=== PATIENT | female | born 1955 | race Caucasian/White ===

== ENCOUNTER → 2016-09-08 | Outpatient (CLI) | payer OTHER ==
[~2016-09-08] MED LIST: BAYER CHEWABLE81 MG PO; CYMBALTA30 MG PO; FENOFIBRATE145 MG PO; FLUOXETINE HCL20 MG PO; FORTAMET500 MG PO; GLUCOTROL XL 5 M5 MG PO; IMDUR ER TAB 6060 MG PO; JANUVIA 100 MG100 MG PO; LASIX20 MG PO; LIDOCAINE-PRIL1 EACH TP; METOPROLOL TART25 MG PO; NEURONTIN 300300 MG PO; NITROGLYCERIN0.4 MG SL; OMEGA 3 FISH O1 EACH PO; OMEPRAZOLE40 MG PO; POTASSIUM CHLO10 ME2 PO; RESTASIS 0.05%1 EACH OD; TYLENOL 500 MG500 MG PO; VICTOZA 1818 MG/3 ML SC; VITAMIN D350000 UNIT PO; WELLBUTRIN XL150 MG PO; ZANAFLEX2 MG PO; ZESTRIL2.5 MG PO; ZOCOR20 MG PO; ZYRTEC10 MG PO
== END ==
LOC: HEART 5 08-04 09:00
DX: I25.10 Atherosclerotic heart disease of native coronary artery without angina pectoris (principal); R06.02 Shortness of breath; R06.00 Dyspnea, unspecified; R07.9 Chest pain, unspecified; I10 Essential (primary) hypertension; I07.1 Rheumatic tricuspid insufficiency; Z98.61 Coronary angioplasty status
CPT/HCPCS: 93306

== ENCOUNTER → 2020-04-14 | Outpatient (CLI) | payer OTHER | LOC: HEART 5 15:56 | DX: J44.9 Chronic obstructive pulmonary disease, unspecified (principal); R94.2 Abnormal results of pulmonary function studies; F17.210 Nicotine dependence, cigarettes, uncomplicated | CPT/HCPCS: 94010; 94729 ==

== ENCOUNTER → 2020-09-22 | Outpatient (CLI) | payer OTHER ==
[2020-09-22 10:38] LABS: BUN/CREATININE RATIO 9 (0-10)
== END ==
LOC: MAMO 08:43
PROVIDERS: Family Medicine
DX: Z12.31 Encounter for screening mammogram for malignant neoplasm of breast (principal); E11.9 Type 2 diabetes mellitus without complications; E78.5 Hyperlipidemia, unspecified; E55.9 Vitamin D deficiency, unspecified
CPT/HCPCS: 36415; 77063; 77067; 80053; 80061; 83036

== ENCOUNTER → 2020-10-14 | Outpatient (CLI) | payer OTHER | LOC: HEART 5 15:05 | DX: I25.10 Atherosclerotic heart disease of native coronary artery without angina pectoris (principal); R06.02 Shortness of breath | CPT/HCPCS: 93306 ==

== ENCOUNTER → 2020-11-01 | Outpatient (CLI) | payer OTHER | LOC: HEART 5 10-26 07:30 | DX: R94.39 Abnormal result of other cardiovascular function study (principal); I25.119 Atherosclerotic heart disease of native coronary artery with unspecified angina pectoris; Z95.5 Presence of coronary angioplasty implant and graft | CPT/HCPCS: 78452; A9502; J2785 ==

== ENCOUNTER → 2021-02-10 | Outpatient (CLI) | payer OTHER | LOC: EXRD 14:51 | DX: J20.9 Acute bronchitis, unspecified (principal); J44.1 Chronic obstructive pulmonary disease with (acute) exacerbation | CPT/HCPCS: 71046 ==

== ENCOUNTER → 2021-05-03 | Outpatient (CLI) | payer OTHER ==
[~2021-05-03] VITALS: Ht 165.1 cm; Wt 101.6 kg
== END ==
LOC: EROP 12:05
DX: U07.1 COVID-19 (principal); I25.10 Atherosclerotic heart disease of native coronary artery without angina pectoris; E11.9 Type 2 diabetes mellitus without complications; J44.9 Chronic obstructive pulmonary disease, unspecified
CPT/HCPCS: M0247; Q0247

== ENCOUNTER → 2021-11-28 | Outpatient (CLI) | payer OTHER | LOC: MAMO 14:30 | DX: Z12.31 Encounter for screening mammogram for malignant neoplasm of breast (principal) | CPT/HCPCS: 77063; 77067 ==